=== PATIENT | female | born 1990 | race Two or more races ===

== ENCOUNTER 2021-03-17 14:22 | Emergency (ER) | payer OTHER ==
[~2021-03-17] VITALS: Ht 175.3 cm; Wt 80.7 kg
[2021-03-17] MEDS ORDERED: KETO10TA2 PO (17:53)
[2021-03-17] MEDS ORDERED: NORFLEX100MG PO (17:53)
== END 2021-03-17 17:57 | disposition home or self-care (01) ==
LOC: ER 14:22
DX: M54.2 Cervicalgia (principal); M54.5 Low back pain